=== PATIENT | female | born 1935 | race Caucasian/White ===

== ENCOUNTER → 2017-01-06 | Outpatient (CLI) | payer MEDICARE | END | disposition home or self-care (01) | LOC: CFH 09:24 | PROVIDERS: ATTEND Internal Medicine Cardiovascular Disease | DX: I08.3 Combined rheumatic disorders of mitral, aortic and tricuspid valves (principal); I10 Essential (primary) hypertension | CPT/HCPCS: 93306 ==

== ENCOUNTER → 2018-01-26 | Outpatient (CLI) | payer MEDICARE | END | disposition home or self-care (01) | LOC: CFH 09:16 | PROVIDERS: ATTEND Internal Medicine Cardiovascular Disease | DX: I08.3 Combined rheumatic disorders of mitral, aortic and tricuspid valves (principal); I10 Essential (primary) hypertension; E11.9 Type 2 diabetes mellitus without complications | CPT/HCPCS: 93306 ==

== ENCOUNTER 2018-03-16 09:37 | Day surgery (SDC) | payer MEDICARE ==
[~2018-03-16] VITALS: Ht 154.9 cm; Wt 53.6 kg
[2018-03-16] MEDS ORDERED: SODIUM CHLORIDE 0.9% 1,000 ML IV ONE (10:07)
[2018-03-16] MEDS ORDERED: LOSA100T14 PO (10:28)
[2018-03-16] MEDS ORDERED: MAGN84TA6 PO (10:28)
[2018-03-16] MEDS ORDERED: TIMO5DRO28 EACHEYE (10:28)
[2018-03-16] MEDS ORDERED: AMLO10TA8 PO (10:28)
[2018-03-16] MEDS ORDERED: CHOL100014 PO (10:28)
[2018-03-16] MEDS ORDERED: ASPI-496 PO (10:28)
[2018-03-16] MEDS ORDERED: OMEG1CAP23 PO (10:28)
[2018-03-16] MEDS ORDERED: PRAV20TA2 PO (10:28)
[2018-03-16] MEDS ORDERED: DORZ10DR EACHEYE (10:28)
[2018-03-16] MEDS ORDERED: CINN500C2 PO (10:28)
[2018-03-16] MEDS ORDERED: BIMA2.5D EACHEYE (10:28)
[2018-03-16] MEDS ORDERED: FOLI20CA PO (10:28)
[2018-03-16] MEDS ORDERED: PLEASE ENTER HEIGHT AND WEIGHT MC SCH (10:30)
[2018-03-16 11:15] LABS: BASOPHILS # (AUTO) 0.03 x10^3/uL (0-0.1); BASOPHILS % (AUTO) 0 % (0-1); EOSINOPHILS # (AUTO) 0.34 x10^3/uL (0-0.4); EOSINOPHILS % (AUTO) 6 % (1-7); LYMPHOCYTES # (AUTO) 1.28 x10^3/uL (1-3.4); LYMPHOCYTES % (AUTO) 21 % (22-44); MD NO; MEAN CORPUSCULAR HEMOGLOBIN 32.9 pg (27.0-34.8); MEAN CORPUSCULAR HGB CONC 34.1 g/dL (32.4-35.8); MEAN CORPUSCULAR VOLUME 96.5 fL (80-100); MEAN PLATELET VOLUME 8.9 fL (7.4-10.4); MONOCYTES # (AUTO) 0.55 x10^3/uL (0.2-0.8); MONOCYTES % (AUTO) 9 % (2-9); NEUTROPHILS # (AUTO) 3.95 x10^3/uL (1.8-6.8); NEUTROPHILS % (AUTO) 64 % (42-75); PLATELET COUNT 173 x10^3/uL (130-400); RED BLOOD COUNT 4.41 x10^6/uL (3.82-5.3); RED CELL DISTRIBUTION WIDTH 13.6 % (9.6-15.2)
[2018-03-16 11:40] LABS: ANION GAP 5 mmol/L (5-15); CALCIUM 10.4 mg/dL (8.5-10.1); CHLORIDE 107 mmol/L (98-107); CREATININE 1.15 mg/dL (0.55-1.02)
[2018-03-16] MEDS ORDERED: VERAPAMIL 2.5 MG/ML, 2ML ONE ×2 (11:46→11:49)
[2018-03-16] MEDS ORDERED: HEPARIN 1,000 UNITS/ML, 10ML ONE ×2 (11:46→11:49)
[2018-03-16] MEDS ORDERED: LIDOCAINE-MPF 1%, 5ML ONE (11:46)
[2018-03-16] MEDS ORDERED: MIDAZOLAM 1 MG/ML, 2ML ONE (11:48)
[2018-03-16] MEDS ORDERED: FENTANYL PF 100 MCG/2ML ONE (11:48)
[2018-03-16] MEDS ORDERED: LIDOCAINE 1%, 20ML ONE (11:49)
== END 2018-03-16 16:20 | disposition home or self-care (01) ==
LOC: CACL 09:37
PROVIDERS: ATTEND Internal Medicine Cardiovascular Disease
DX: I25.10 Atherosclerotic heart disease of native coronary artery without angina pectoris (principal); E11.22 Type 2 diabetes mellitus with diabetic chronic kidney disease; I12.9 Hypertensive chronic kidney disease with stage 1 through stage 4 chronic kidney disease, or unspecified chronic kidney disease; N18.4 Chronic kidney disease, stage 4 (severe); I35.0 Nonrheumatic aortic (valve) stenosis; E78.2 Mixed hyperlipidemia; Z79.82 Long term (current) use of aspirin
CPT/HCPCS: 36415; 80048; 85025; 93458; 99156; 99157; C1769; C1894; J1644; J2250; J3010; J3490; Q9967

== ENCOUNTER 2018-03-30 08:09 | Outpatient (CLI) | payer MEDICARE ==
[~2018-03-30 08:09] MED LIST: AMLO10TA8 PO; ASPI-496 PO; BIMA2.5D EACHEYE; CHOL100014 PO; CINN500C2 PO; DORZ10DR EACHEYE; FOLI20CA PO; LOSA100T14 PO; MAGN84TA6 PO; OMEG1CAP23 PO; PRAV20TA2 PO; TIMO5DRO28 EACHEYE
[2018-03-30] MEDS ORDERED: METOPROLOL 1 MG/ML, 5ML ONE (09:38)
[2018-03-30] MEDS ORDERED: OMNIPAQUE 350 MG/ML, 150 ML BOTTLE ONE (13:00)
== END 2018-03-30 23:59 | disposition home or self-care (01) ==
LOC: RAD 08:09
PROVIDERS: ATTEND Internal Medicine Cardiovascular Disease
DX: I65.23 Occlusion and stenosis of bilateral carotid arteries (principal); I25.10 Atherosclerotic heart disease of native coronary artery without angina pectoris; K76.0 Fatty (change of) liver, not elsewhere classified; K57.90 Diverticulosis of intestine, part unspecified, without perforation or abscess without bleeding; I11.9 Hypertensive heart disease without heart failure; J84.89 Other specified interstitial pulmonary diseases; M51.37 Other intervertebral disc degeneration, lumbosacral region; Q61.02 Congenital multiple renal cysts; Z88.8 Allergy status to other drugs, medicaments and biological substances
CPT/HCPCS: 71275; 74174; 93880; 94060; 94726; 94729; Q9967

== ENCOUNTER 2018-04-20 06:07 | Inpatient (IN) | payer MEDICARE ==
[~2018-04-20] VITALS: Ht 154.9 cm; Wt 54.1 kg
[2018-04-20] MEDS ORDERED: SODIUM CHLORIDE 0.9% 1,000 ML IV ONE (06:13)
[2018-04-20 06:25] VITALS: BP 137/89
[2018-04-20] MEDS ORDERED: CHLORHEXIDINE 15 ML UDC MM PRN (06:30)
[2018-04-20] MEDS ORDERED: ONDANSETRON 2MG/ML, 2ML IVPush PRN ×2 (06:30→09:00)
[2018-04-20] MEDS ORDERED: LATA7.5D OP (06:47)
[2018-04-20] MEDS ORDERED: BRIMONIDINE OP (06:47)
[2018-04-20] MEDS ORDERED: Calcium PO (06:48)
[2018-04-20 07:02] LABS: BASOPHILS # (AUTO) 0.02 x10^3/uL (0-0.1); BASOPHILS % (AUTO) 0 % (0-1); EOSINOPHILS # (AUTO) 0.37 x10^3/uL (0-0.4); EOSINOPHILS % (AUTO) 5 % (1-7); LYMPHOCYTES # (AUTO) 1.36 x10^3/uL (1-3.4); LYMPHOCYTES % (AUTO) 19 % (22-44); MD NO; MEAN CORPUSCULAR HEMOGLOBIN 32.6 pg (27.0-34.8); MEAN CORPUSCULAR HGB CONC 33.8 g/dL (32.4-35.8); MEAN CORPUSCULAR VOLUME 96.4 fL (80-100); MEAN PLATELET VOLUME 8.7 fL (7.4-10.4); MONOCYTES # (AUTO) 0.66 x10^3/uL (0.2-0.8); MONOCYTES % (AUTO) 9 % (2-9); NEUTROPHILS # (AUTO) 4.82 x10^3/uL (1.8-6.8); NEUTROPHILS % (AUTO) 67 % (42-75); PLATELET COUNT 143 x10^3/uL (130-400); RED BLOOD COUNT 4.13 x10^6/uL (3.82-5.3); RED CELL DISTRIBUTION WIDTH 13.8 % (9.6-15.2)
[2018-04-20 07:06] LABS: ALBUMIN 3.2 g/dL (3.4-5.0); ANION GAP 6 mmol/L (5-15); CALCIUM 9.3 mg/dL (8.5-10.1); CHLORIDE 111 mmol/L (98-107)
[2018-04-20] MEDS ORDERED: PROTAMINE SULFATE 10 MG/ML, 5ML ONE (07:07)
[2018-04-20 07:08] LABS: INTERNATIONAL NORMALIZED RATIO 1.01 (0.93-1.1); PROTHROMBIN TIME 10.6 Seconds (9.6-11.5)
[2018-04-20 07:11] LABS: ALANINE AMINOTRANSFERASE 23 U/L (12-78); ALKALINE PHOSPHATASE 52 U/L (45-117); BILIRUBIN,TOTAL 0.3 mg/dL (0.2-1.0); CREATININE 1.27 mg/dL (0.55-1.02); TOTAL PROTEIN 6.8 g/dL (6.4-8.2)
[2018-04-20] MEDS ORDERED: FENTANYL PF 100 MCG/2ML ONE (07:27)
[2018-04-20] MEDS ORDERED: ONDANSETRON 2MG/ML, 2ML ONE (07:40)
[2018-04-20] MEDS ORDERED: CEFAZOLIN 1,000 MG ONE (07:40)
[2018-04-20] MEDS ORDERED: PHENYLEPHRINE 10 MG/ML ONE (07:40)
[2018-04-20] MEDS ORDERED: PROPOFOL 10 MG/ML, 20ML ONE (07:40)
[2018-04-20] MEDS ORDERED: SUCCINYLCHOLINE 20 MG/ML, 10ML ONE (07:40)
[2018-04-20] MEDS ORDERED: ROCURONIUM 10MG/ML,5ML ONE (07:40)
[2018-04-20] MEDS ORDERED: DEXAMETHASONE 4 MG/ML, 1ML ONE (07:40)
[2018-04-20] MEDS ORDERED: LABETALOL 5 MG/ML SYRINGE IVPush PRN (09:00)
[2018-04-20] MEDS ORDERED: BRIMONIDINE OP SCH (09:00)
[2018-04-20] MEDS: CALCIUM CARBONATE 500 MG TABLET PO SCH (09:00)
[2018-04-20] MEDS ORDERED: hydrALAzine 20 MG/ML, 1ML IVPush PRN (09:00)
[2018-04-20] MEDS ORDERED: CLOPIDOGREL 300 MG TABLET PO ONE (09:00)
[2018-04-20] MEDS ORDERED: ACETAMINOPHEN 325 MG TABLET PO PRN (09:00)
[2018-04-20] MEDS: LOSARTAN 50MG TABLET PO SCH (09:00)
[2018-04-20] MEDS ORDERED: TEMPLATE NON-FORMULARY MED. (Timolol (Betimol) 1 DROP) EACHEYE SCH (09:00)
[2018-04-20] MEDS: AMLODIPINE 10 MG TAB PO SCH (09:00)
[2018-04-20] MEDS: SODIUM CHLORIDE 0.9% 1,000 ML IV SCH ×2 (09:34→15:06)
[2018-04-20 20:40] VITALS: BP 121/65
[2018-04-20] MEDS ORDERED: CLOPIDOGREL 300 MG TABLET ONE (20:46)
[2018-04-20] MEDS ORDERED: PRAVASTATIN 20 MG TABLET PO SCH (21:00)
[2018-04-21 01:45] VITALS: BP 112/64
[2018-04-21 05:49] LABS: ANION GAP 4 mmol/L (5-15); CALCIUM 8.8 mg/dL (8.5-10.1); CHLORIDE 115 mmol/L (98-107)
[2018-04-21 05:58] LABS: BASOPHILS # (AUTO) 0.02 x10^3/uL (0-0.1); BASOPHILS % (AUTO) 0 % (0-1); EOSINOPHILS # (AUTO) 0.07 x10^3/uL (0-0.4); EOSINOPHILS % (AUTO) 1 % (1-7); LYMPHOCYTES # (AUTO) 0.78 x10^3/uL (1-3.4); LYMPHOCYTES % (AUTO) 9 % (22-44); MD NO; MEAN CORPUSCULAR HEMOGLOBIN 33.1 pg (27.0-34.8); MEAN CORPUSCULAR VOLUME 97.4 fL (80-100); MEAN PLATELET VOLUME 8.9 fL (7.4-10.4); MONOCYTES # (AUTO) 0.68 x10^3/uL (0.2-0.8); MONOCYTES % (AUTO) 8 % (2-9); NEUTROPHILS # (AUTO) 6.76 x10^3/uL (1.8-6.8); NEUTROPHILS % (AUTO) 81 % (42-75); PLATELET COUNT 103 x10^3/uL (130-400); RED BLOOD COUNT 3.45 x10^6/uL (3.82-5.3); RED CELL DISTRIBUTION WIDTH 13.7 % (9.6-15.2)
[2018-04-21 07:55] VITALS: BP 136/71
[2018-04-21] MEDS: LOSARTAN 50MG TABLET PO SCH (09:00)
[2018-04-21] MEDS ORDERED: ASPIRIN 81 MG TABLET EC PO SCH (09:00)
[2018-04-21] MEDS: AMLODIPINE 10 MG TAB PO SCH (09:00)
[2018-04-21] MEDS ORDERED: CLOPIDOGREL 75 MG TABLET PO SCH (09:00)
[2018-04-21] MEDS: CALCIUM CARBONATE 500 MG TABLET PO SCH (09:00)
[2018-04-21] MEDS ORDERED: CLOP75TA52 PO (12:53)
== END 2018-04-21 14:51 | disposition home health service (06) | DRG 266 ==
LOC: ORIP 06:07 → CSU 08:59 → 5SO 20:52 → DCLOUNGE 04-21 14:28 → 5SO 04-21 14:37
PROVIDERS: ADMIT Internal Medicine Cardiovascular Disease; ATTEND Internal Medicine Cardiovascular Disease
PROC: 02RF38Z Replacement of Aortic Valve with Zooplastic Tissue, Percutaneous Approach (ICD-10-PCS; 2018-04-20)
PROC: B3101ZZ Fluoroscopy of Thoracic Aorta using Low Osmolar Contrast (ICD-10-PCS; 2018-04-20)
PROC: 03HY32Z Insertion of Monitoring Device into Upper Artery, Percutaneous Approach (ICD-10-PCS; 2018-04-20)
PROC: B24BZZ4 Ultrasonography of Heart with Aorta, Transesophageal (ICD-10-PCS; principal; 2018-04-20 08:00)
DX: I35.0 Nonrheumatic aortic (valve) stenosis (principal); Z00.6 Encounter for examination for normal comparison and control in clinical research program; I50.33 Acute on chronic diastolic (congestive) heart failure; I13.0 Hypertensive heart and chronic kidney disease with heart failure and stage 1 through stage 4 chronic kidney disease, or unspecified chronic kidney disease; Z88.8 Allergy status to other drugs, medicaments and biological substances; E11.22 Type 2 diabetes mellitus with diabetic chronic kidney disease; E78.5 Hyperlipidemia, unspecified; H40.9 Unspecified glaucoma; N18.3 Chronic kidney disease, stage 3 (moderate)
CPT/HCPCS: 0399T; 33361; 36415; 80048; 80053; 83880; 85025; 85347; 85610; 85730; 86850; 86900; 86923; 87081; 93005; 93306; 93312; 93321; 93325; 93355; C1760; C1769; C1894; G0378; J0690; J1100; J2405; J2704; J2720; J3010; J0330; J2370; J7030; Q9967

== ENCOUNTER 2018-05-28 10:27 | Outpatient (CLI) | payer MEDICARE ==
[~2018-05-28 10:27] MED LIST changes: +BRIMONIDINE OP; +CLOP75TA52 PO; +Calcium PO; +LATA7.5D OP
== END 2018-05-28 23:59 | disposition home or self-care (01) ==
LOC: CVU 10:27
PROVIDERS: ATTEND Internal Medicine Cardiovascular Disease
DX: I08.8 Other rheumatic multiple valve diseases (principal); I27.20 Pulmonary hypertension, unspecified; I11.9 Hypertensive heart disease without heart failure; E11.9 Type 2 diabetes mellitus without complications; Z95.2 Presence of prosthetic heart valve
CPT/HCPCS: 0399T; 93306

== ENCOUNTER → 2019-04-11 | Outpatient (CLI) | payer MEDICARE | END | disposition home or self-care (01) | LOC: CFH 09:46 | PROVIDERS: ATTEND Registered Nurse | DX: I08.8 Other rheumatic multiple valve diseases (principal); I25.10 Atherosclerotic heart disease of native coronary artery without angina pectoris; I11.9 Hypertensive heart disease without heart failure; E78.5 Hyperlipidemia, unspecified | CPT/HCPCS: 93306 ==